=== PATIENT | female | born 1960 | race Caucasian/White ===

== ENCOUNTER → 2016-06-15 | Outpatient (CLI) | payer BC, OTHER ==
--- NOTE | 2016-06-15 11:40 | MR ---
EXAMINATION TYPE: MR shoulder RT wo con DATE OF EXAM: 06/15/2016 10:09 AM COMPARISON: X-ray 05/11/2016, MRI 01/18/2012 HISTORY: contusion rt shoulder TECHNIQUE: Multiplanar, multisequence imaging of the shoulder is performed without contrast. FINDINGS: Rotator Cuff: There is evidence of previous surgery with abnormal marrow changes within the humeral h ead. At the musculotendinous junction of the supraspinatus muscle there is a focal area of increased signa l compatible with tendinopathy and intrasubstance tear. The insertion of the distal margin of the sup raspinatus tendon there also is intrasubstance signal with no retraction compatible with intrasubstan ce tear and tendinopathy. Acromioclavicular Joint: Hypertrophic change and narrowing of the AC joint with no evidence of imping ement. Glenohumeral Joint: Glenohumeral joint is maintained. There is no sizable joint effusion. Labrum: Abnormal signal within the anterior superior labrum is compatible with a labral tear. Biceps Tendon: The long head of biceps is in normal location within bicipital groove. Bone marrow signal: No marrow edema or contusion. Postsurgical and reactive changes involving the hum eral head noted. IMPRESSION: Postoperative changes with findings suggestive of tendinopathy and partial intrasubstance tear of the supraspinatus tendon with no retraction. Anterior superior labral tear
== END | disposition home or self-care (01) ==
LOC: RADMRIMAIN 09:16
PROVIDERS: ATTEND Emergency Medicine
DX: S13.4XXA Sprain of ligaments of cervical spine, initial encounter (principal); S40.011A Contusion of right shoulder, initial encounter; S60.211A Contusion of right wrist, initial encounter; R20.9 Unspecified disturbances of skin sensation

== ENCOUNTER 2016-06-23 09:56 | Emergency (ER) | payer BC, OTHER ==
--- NOTE | 2016-06-23 11:09 | XR ---
EXAMINATION TYPE: XR ankle complete RT DATE OF EXAM: 06/23/2016 11:06 AM CLINICAL HISTORY: pain TECHNIQUE: Frontal, lateral and oblique images of the right foot are obtained. COMPARISON: None. FINDINGS: There is no acute fracture/dislocation evident. The joint spaces appear within normal chatman its. Lateral soft tissue swelling is noted. IMPRESSION: There is no acute fracture or dislocation. ICD 10 NO FRACTURE, INITIAL EVALUATION
--- NOTE | 2016-06-23 11:20 | ED ---
Lower Extremity Injury HPI - General Chief Complaint: Extremity Injury, Lower Stated Complaint: swollen ankle Time Seen by Provider: 06/23/16 10:50 Source: patient, RN notes reviewed Mode of arrival: wheelchair Limitations: no limitations - History of Present Illness Initial Comments: 55-year-old female presents emergency Department with chief complaint of right ankle pain. Patient states that she twisted at work. Patient states is swollen. Patient states it's also bruised. No previous fractures. Patient states he is able to bear minimal weight. Patient offers no other complaints of foot pain no knee pain. - Related Data Home Medications Medication Instructions Recorded Confirmed No Known Home Medications [No 06/23/16 06/23/16 Known Home Medications] Allergies Allergy/AdvReac Type Severity Reaction Status Date / Time hydrocodone bitartrate Allergy Nausea & Verified 06/23/16 10:56 [From Vicodin] Vomiting Review of Systems ROS Statement: Those systems with pertinent positive or pertinent negative responses have been documented in the HPI. ROS Other: All systems not noted in ROS Statement are negative. Past Medical History Past Medical History: Hypertension History of Any Multi-Drug Resistant Organisms: None Reported Past Surgical History: Breast Surgery, Cholecystectomy, Hysterectomy, Orthopedic Surgery Additional Past Surgical History / Comment(s): MATTHEW BREAST BX, RT SHOULDER, RT ELBOW Past Anesthesia/Blood Transfusion Reactions: Postoperative Nausea & Vomiting ( PONV) Past Psychological History: Anxiety Smoking Status: Former smoker Past Alcohol Use History: Occasional Past Drug Use History: None Reported General Exam Limitations: no limitations General appearance: alert, in no apparent distress Head exam: Present: atraumatic, normocephalic, normal inspection Respiratory exam: Present: normal lung sounds bilaterally. Absent: respiratory distress, wheezes, rales, rhonchi, stridor Cardiovascular Exam: Present: regular rate, normal rhythm, normal heart sounds. Absent: systolic murmur, diastolic murmur, rubs, gallop, clicks Extremities exam: Present: other (Right ankle there is moderate ecchymosis, swelling tenderness the lateral malleolus neurovascular intact Refill less than 2 seconds there is no foot tenderness no tenderness proximal to the right ankle) Course Vital Signs 06/23/16 10:06 Temperature 97.5 F L Pulse Rate 98 Respiratory 16 Rate Blood Pressure 127/78 O2 Sat by Pulse 99 Oximetry Medical Decision Making - Medical Decision Making 55-year-old female presented for right ankle pain. Patient x-rays show no acute fracture. Patient has a right ankle sprain placed in a air cast. She is advised to go [id number] acetaminophen and ibuprofen and follow-up with [facility]. Disposition Clinical Impression: Right ankle sprain Disposition: HOME SELF-CARE Condition: Stable Instructions: Ankle Sprain (ED) Additional Instructions: Please return to the Emergency Department if symptoms worsen or any other concerns. Referrals: Iván Stevens MD [Primary Care Provider] - 1-2 days Time of Disposition: 11:19
[2016-06-23] MEDS: IBUPROFEN 600 MG TAB PO STA (11:23)
[2016-06-23 11:27] VITALS: BP 118/70; PULSE 92; RESP 18; TEMP 97.6
== END 2016-06-23 11:42 | disposition home or self-care (01) ==
LOC: EC 09:56
DX: S93.401A Sprain of unspecified ligament of right ankle, initial encounter (principal); Z88.5 Allergy status to narcotic agent; Z87.891 Personal history of nicotine dependence; X50.1XXA Overexertion from prolonged static or awkward postures, initial encounter; Y99.0 Civilian activity done for income or pay
CPT/HCPCS: 99283

== ENCOUNTER → 2016-07-18 | Outpatient (CLI) | payer BC, OTHER ==
[2016-07-18 08:19] LABS: Basophils # (A) 0.2 k/uL (0-0.2); Basophils % (A) 2 %; CH 27.9; CHCM 31.9; Eosinophils # (A) 0.2 k/uL (0-0.7); Eosinophils % (A) 2 %; HCT 42.7 % (34.0-46.0); HDW 2.63; HGB 13.7 gm/dL (11.4-16.0); Luc # (Auto) 0.12; Luc % (Auto) 1; Lymphocytes # (A) 3.2 k/uL (1.0-4.8); Lymphocytes % (A) 37 %; MCH 28.3 pg (25.0-35.0); MCHC 32.1 g/dL (31.0-37.0); Mean Platelet Volume 7.2; Monocytes # (A) 0.4 k/uL (0-1.0); Monocytes % (A) 5 %; Neutrophils # (A) 4.5 k/uL (1.3-7.7); Neutrophils % (A) 53 %; RBC 4.86 m/uL (3.80-5.40); RDW 13.4 % (11.5-15.5); WBC 8.5 k/uL (3.8-10.6)
[2016-07-18 08:35] LABS: Potassium 4.5 mmol/L (3.5-5.1)
== END | disposition home or self-care (01) ==
LOC: LABPAT 07:57
PROVIDERS: ATTEND Orthopaedic Surgery
DX: Z01.812 Encounter for preprocedural laboratory examination (principal); M75.41 Impingement syndrome of right shoulder
CPT/HCPCS: 80051; 85025

== ENCOUNTER 2016-07-27 07:36 | Day surgery (SDC) | payer BC, OTHER ==
[2016-07-21 11:05] VITALS: BMI 33.1
--- NOTE | 2016-07-26 14:09 | HP ---
DATE OF ADMISSION: 07/27/2016 Sakina Coronado is a 56-year-old patient seen with progressive right shoulder pain. After having options regarding treatment discussed with her, she elected to proceed with right shoulder arthroscopy. Consent was obtained. Past medical history is gastroesophageal reflux disease, depression. PAST SURGICAL HISTORY: Hysterectomy, tonsillectomy, cardiac catheterization, right elbow surgery, breast biopsy, right shoulder arthroscopy. DAILY MEDICATIONS: 1. Aspirin. 2. Ibuprofen. ALLERGIES: VICODIN. SOCIAL HISTORY: Patient denies current tobacco use. Physical evaluation of right shoulder: Flexion is 120 degrees, abduction is 90 degrees, external rotation is 50 degrees with some pain and discomfort as well as weakness. Tenderness along the anterolateral acromion rotator cuff insertion site. Impingement positive at 90 degrees, distal neurovascular exam is intact. Radiographs right shoulder revealed no obvious evidence for fracture or osseous abnormality. An MRI of the right shoulder revealed partial rotator cuff tear and superior labral tear. IMPRESSION: Right shoulder impingement with partial rotator cuff tear and labral tear. PLAN: Right shoulder arthroscopy with subacromial decompression, possible arthroscopic rotator cuff repair, possible labral repair versus debridement.
[~2016-07-27 07:36] MED LIST: DEXAMETHASONE SOD PHOSPHATE 10 MG/ML 1 ML VIAL IV ONE; HYDROmorphone 1 MG/ML 1 ML SYRINGE IVP PRN; LACTATED RINGERS 1,000 ML IV SCH; MIDAZOLAM 2 MG/2 ML VIAL IV PRN; ONDANSETRON 4 MG/2 ML VIAL IVP ONE; ceFAZolin 2 GM in SODIUM CHLORIDE 0.9% 100 ML IVPB ONE
[2016-07-27] MEDS ORDERED: LIDOCAINE 1% 20 ML VIAL (10MG/ML) FOR IV START INTRADERMA ONE (08:32)
[2016-07-27] MEDS ORDERED: fentaNYL (PF) 50 MCG/ML 2 ML AMP IV ONE ×2 (08:35→08:40)
[2016-07-27] MEDS ORDERED: MIDAZOLAM 2 MG/2 ML VIAL IVP ONE ×2 (08:35→08:40)
--- NOTE | 2016-07-27 09:09 | P.ONQ ---
Anesthesiology Proc Note - PNB - Peripheral Nerve Block Performed Right Interscalene Single Time Out Performed: Yes Indication: Acute Post-Operative Pain, Analgesia Specifically requested for management of pain by DrMaribel: Loy Miller Sedation Type: Sedate with meaningful contact maintained Preparation: Sterile Prep Position: Supine Catheter: None Needle Types: Other (see comment) (stimuplex) Needle Size: 50mm (2") Needle Gauge: Other (see comment) (22) Technique: Ultrasound Injectate: Other (see comment) (ropivicaine 0.5% 15 cc + Lidocaine 2% 15 cc) Adjunct: Epinephrine (see comment for dilution ratio) (1:200,000) Blood Aspirated: No Pain Paresthesia on Injection Noted: No Resistance on Injection: Normal Events: Uneventful and Well Tolerated
[2016-07-27] MEDS ORDERED: SUCCINYLCHOLINE CHLORIDE 100 MG/5 ML SYR IV ONE (09:26)
[2016-07-27] MEDS ORDERED: ROPIVACAINE 5 MG/ML 30 ML VIAL ONE (09:26)
[2016-07-27] MEDS ORDERED: ePHEDrine 50 MG/ML 1 ML AMP ONE (09:26)
[2016-07-27] MEDS ORDERED: MIDAZOLAM 2 MG/2 ML VIAL ONE (09:26)
[2016-07-27] MEDS ORDERED: fentaNYL (PF) 50 MCG/ML 2 ML AMP ONE (09:26)
[2016-07-27] MEDS ORDERED: PROPOFOL 10 MG/ML 20 ML VIAL IV ONE (09:26)
[2016-07-27] MEDS ORDERED: LIDOCAINE 2%-EPI 1:100,000 20 ML VIAL ONE (09:26)
[2016-07-27] MEDS ORDERED: METOCLOPRAMIDE 5 MG/ML 2 ML VIAL ONE (09:26)
[2016-07-27] MEDS ORDERED: LIDOCAINE 1% INJ 10MG/ML (20 ML MDV) ONE (09:26)
[2016-07-27] MEDS ORDERED: LACTATED RINGERS 1,000 ML IV ONE (10:28)
--- NOTE | 2016-07-27 11:09 | P.OP ---
Date of Procedure: 07/27/16 Preoperative Diagnosis: Right shoulder impingement Postoperative Diagnosis: 1. Right shoulder rotator cuff tear 2. Right shoulder impingement 3. Right shoulder superficial labral tear Procedure(s) Performed: 1. Right shoulder arthroscopic rotator cuff 2. Right shoulder arthroscopic subacromial decompression 3. Right shoulder arthroscopic debridement labral tear Anesthesia: GETA, regional (Right shoulder interscalene block) Surgeon: Loy Miller Stitcher Tape Controlled Machine #1: Asif Aly Estimated Blood Loss (ml): 10 Pathology: none sent Condition: stable Disposition: PACU Indications for Procedure: 56-year-old patient seen with right shoulder pain. After treatment options discussed, she elected to proceed with right shoulder arthroscopy. Operative Findings: See description of procedure Description of Procedure: Patient underwent a shoulder block by department of anesthesia. The patient was then taken to the operative suite. The patient underwent a general anesthetic by the department of anesthesia. The patient was placed into a lateral position and secured. There was appropriate padding of the bony prominence. Right shoulder was then prepped and draped in normal sterile orthopedic fashion. We placed the extremity in 10 pounds of longitudinal traction. A posterior incision was now made for a posterior working portal site. The trocar and cannula were inserted into the glenohumeral joint. Arthroscopy was initiated. Spinal needle was now inserted anteriorly, to ascertain the anterior working portal site. An incision was now made in that area, a trocar was inserted followed by a probe. There was some superficial tearing of the superior labrum. There was evidence for previous biceps tenotomy with absent long head biceps tendon. There were grade 1 chondral malacia changes of the humeral head with no significant osteochondral tears. The remaining labrum was stable. I debrided the superficial labral tear down to stable tissue with a motorized shaver. The residual labrum was probed and found to be stable. Instruments were now removed from glenohumeral joint. Utilizing the posterior working portal site, the trocar and cannula were inserted into the subacromial space. Arthroscopy initiated. I made an incision 2 fingerbreadths lateral to the acromion. I introduced my trocar followed by my ArthroCare ablator. I now began ablating thick subacromial bursal tissue, which exposed the undersurface of the anterior acromion. There was some residual prominence of the very anterior portion of the indurated undersurface of the acromion. I utilized the motorized bur and performed a subacromial decompression. We had good decompression of subacromial space at this point. I turned my attention to the rotator cuff tendon. I noted an area of the posterior distal supraspinatus with was some obvious partial tearing. I utilized the motorized shaver and debrided that down to stable tissue. There was a small perforation noted which was through and through. I debrided the margins down to stable tissue. I now passed 2 sutures for a [id number]-[id number] repair. I tied those 2 sutures approximating the tendon very nicely. The residual suture limbs were clipped. The repair was probed and found to be stable. I injected 1 mL of Allogen intra-articular. Instruments now removed from the portal sites. All portal sites were approximated with nylon suture. Sterile dressings were applied followed by a shoulder immobilizer. Quentin MIRANDA assisted with the procedure. The patient was awakened, transferred to a bed, and taken to recovery in stable condition.
[2016-07-27 11:26] VITALS: RESP 16; TEMP 97.6
[2016-07-27 12:44] VITALS: BP 111/72; PULSE 88
== END 2016-07-27 13:21 | disposition home or self-care (01) ==
LOC: OR 07:36
PROVIDERS: ATTEND Orthopaedic Surgery
DX: M75.101 Unspecified rotator cuff tear or rupture of right shoulder, not specified as traumatic (principal); S43.431A Superior glenoid labrum lesion of right shoulder, initial encounter; J45.909 Unspecified asthma, uncomplicated; I10 Essential (primary) hypertension; Z79.1 Long term (current) use of non-steroidal anti-inflammatories (NSAID); Z88.5 Allergy status to narcotic agent
CPT/HCPCS: 29827; 29826; 64415; C1765; J2250; J1100; J2765; J0690; J2405; J2001; J3010; J2795; J0330; J2704

== ENCOUNTER → 2017-06-08 | Outpatient (CLI) | payer BC ==
--- NOTE | 2017-06-08 11:00 | MR ---
EXAMINATION TYPE: MR shoulder RT wo con DATE OF EXAM: 06/08/2017 COMPARISON: 06/15/2016 HISTORY: 56-year-old female with right shoulder pain TECHNIQUE: Multiplanar, multisequence imaging of the right shoulder is performed without contrast. FINDINGS: Intracapsular portion of the long head biceps tendon remains markedly diminutive. The extracapsular p ortion is situated along the bicipital groove. The subscapularis tendon is intact. There is moderate degenerative joint space narrowing with marginal spurring and capsular hypertrophy at the acromioclavicular joint. Mild capsular and subchondral marrow edema may be slightly progressed from prior. While this abuts the underlying myotendinous junction of the supraspinatus, no significa nt mass effect is seen. Heterogeneity of the supraspinatus tendon status post double row anchor repair. The anterior to mid s upraspinatus tendon is thin but appears intact. Redemonstrated is focal increased signal near the genesis tendinous junction of the mid supraspinatus tendon fibers measuring 3 x 3 mm. This may be a postsurgi harry pinhole defect that appears less pronounced as compared to prior exam. Bursal sided fibers appear to be present. Otherwise, the supraspinatus and infraspinatus tendons remain intact. No atrophy of the rotator cuff musculature. Degenerative blunting of the superior labrum. No paralabral cyst. Physiologic glenohumeral joint effusion. Mild thinning of posterior glenohumeral joint articular cart ilage. There is a trace effusion within the subacromial bursa. No Hill-Sachs deformity or os acromiale patchy red marrow hyperplasia is demonstrated. No suspicious bone marrow replacement. IMPRESSION: 1. Status post supraspinatus tendon repair. No evidence for retracted re-tear. 2. A tiny focal 3 x 3 mm defect involving the mid supraspinatus tendon at the myotendinous junction m ay be on a postsurgical basis. Bursal sided fibers here appear intact. This was present previously bu t appears less pronounced on the current exam. No progression in this tear. No muscle atrophy. 3. Moderate AC joint OA slightly progressed from prior. 4. Very diminutive intracapsular long head biceps tendon suggesting extensive partial tear. The appea vic is not significantly changed from prior.
== END | disposition home or self-care (01) ==
LOC: RADMRIMAIN 06:49
PROVIDERS: ATTEND Orthopaedic Surgery
DX: M19.011 Primary osteoarthritis, right shoulder (principal); R93.7 Abnormal findings on diagnostic imaging of other parts of musculoskeletal system; Z98.890 Other specified postprocedural states

== ENCOUNTER → 2018-07-20 | Outpatient (CLI) | payer BC ==
[2018-07-20 14:00] VITALS: BP 117/80; PULSE 74; RESP 16; TEMP 98; BMI 26.6
--- NOTE | 2018-07-20 15:30 | P.GSHP ---
History of Present Illness H&P Date: 07/20/18 Chief Complaint: Breast screening Sakina is a 58-year-old white female who comes for breast examination. She had a bilateral mammogram performed 07/09/2018. This was felt to be benign and BIRADS 2. The patient states that she lost approximately 58 pounds and since then has noticed some nodularity in both breasts. She complains of right breast periareolar soreness. This is chronic. She does not take hormones. She has no history of trauma or infection in her breast. She drinks coffee intermittently, no tea and no pop. She eats dark chocolate occasionally. She does not smoke and is not exposed to secondhand smoke. Lilian risk shows 5 year risk at 2.6%,her life time risk is 14.2%. (We have discussed counseling with medical oncology for tamoxifen but she does not want to do it at this time) Family history: 1.paternal great aunts/uncles: 4 with lung cancer 2. paternal grandmother: ovaian cancer 3. daughter: ovarian cancer at 34 Menstral History: menarche: 18 : 3, 3 children, first at 20, breast fed: no menopause: hysterectomy at 36, perforated uterus BCP: none hormones: none Past Surgical History: 1. bilateral breast biopsy (5) 2. gallbladder 3. two shoulder surgery (right side) 4. hysterctomy left ovaries, took appendix 5. tubaligation Medical History: none Social history: smoke: none alcohol: occasional drugs: none - Constitutional Constitutional: Reports sweats - EENT Eyes: denies blurred vision, denies pain Ears: deny: decreased hearing, tinnitus Ears, nose, mouth and throat: Reports headache - Breasts Breasts: bilateral: as per HPI - Cardiovascular Cardiovascular: Denies chest pain, Denies shortness of breath - Respiratory Respiratory: Denies cough, Denies 7 - Gastrointestinal Gastrointestinal: Denies abdominal pain, Denies diarrhea, Denies nausea, Denies vomiting - Genitourinary (Female) Genitourinary: Denies dysuria, Denies hematuria - Menstruation Menstruation: Reports post hysterectomy - Musculoskeletal Musculoskeletal: Denies myalgias - Integumentary Integumentary: Denies pruritus, Denies rash - Neurological Neurological: Denies numbness, Denies weakness - Psychiatric Psychiatric: Denies anxiety, Denies depression - Endocrine Endocrine: Reports weight change, Denies fatigue - Hematologic/Lymphatic Comment: none - Allergic/Immunologic Allergic/Immunologic: Reports seasonal allergies Past Medical History Additional Past Medical History / Comment(s): PAST HX OF HTN, NO LONGER ON ANY MEDICATION, STATES SEASONAL ASTHMA, SPRAINED RT ANKLE, CURRENTLY WEARING A BOOT History of Any Multi-Drug Resistant Organisms: None Reported Past Surgical History: Breast Surgery, Cholecystectomy, Hysterectomy, Orthopedic Surgery Additional Past Surgical History / Comment(s): MATTHEW BREAST BX, RT SHOULDER, RT ELBOW Past Anesthesia/Blood Transfusion Reactions: Postoperative Nausea & Vomiting ( PONV) Past Psychological History: Anxiety Smoking Status: Former smoker Past Alcohol Use History: Occasional Additional Past Alcohol Use History / Comment(s): QUIT SMOKING 1986, SMOKED FOR 10 YRS ABOUT 1PPD Past Drug Use History: None Reported - Past Family History Mother Additional Family Medical History / Comment(s): HX OF CLOT IN LIVER, AND SPLEEN Medications and Allergies Home Medications Medication Instructions Recorded Confirmed Type Albuterol Sulfate [Proair Hfa] 2 puff INHALATION DIRECTED PRN 07/21/16 History Ibuprofen Unknown Dose 1 tab PO DIRECTED PRN 07/21/16 07/20/18 History Allergies Allergy/AdvReac Type Severity Reaction Status Date / Time hydrocodone bitartrate AdvReac Nausea & Verified 07/20/18 14:01 [From Vicodin] Vomiting tramadol AdvReac Nausea & Unverified 07/20/18 14:01 Vomiting Surgical - Exam Vital Signs Temp Pulse Resp BP Pulse Ox 98 F 74 16 117/80 97 07/20/18 13:56 07/20/18 13:56 07/20/18 13:56 07/20/18 13:56 07/20/18 13:56 BMI 26.6 - General well developed, well nourished, no distress - Eyes normal ocular movement, no icteric - ENT no hearing loss, no congestion - Neck no masses, trachea midline - Respiratory normal respiratory effort, clear to auscultation - Cardiovascular Rhythm: regular Heart Sounds: normal: S1, S2 - Abdomen Abdomen: soft, non tender, no guarding, no rigid, no rebound - Integumentary normal turgor - Neurologic no disoriented, no combative - Psychiatric oriented to time, oriented to person, oriented to place, speech is normal, memory intact Breast examination: Right breast: Multiple positional exam fibrocystic changes some increased breast tissue in the upper outer quadrant area but no dominant masses or nodules of concern breast is mildly tender consistent with fibrocystic breast disease, well-healed scar from prior breast biopsy Right axilla: No adenopathy of concern Left breast: Well-healed scar from prior breast biopsies multiple positional exam no dominant masses or nodules of concern fibrocystic changes noted Left axilla: No adenopathy of concern Results mammogram results reviewed from July 2018 Assessment and Plan Assessment: Impression: 1. Mastodynia 2. Fibrocystic breast changes 3. Prior bilateral breast biopsies 4. 58 pound weight loss 5. Family history of cancer 6. High risk breast cancer, Lilian risk model five-year risk 2.6% Plan: 1. Close surveillance of breast 2. Repeat bilateral mammogram in 1 year with physician exam at that time 3. Medical management of any medical conditions 4. Yoder oil cc: DR. Darrell Stevens Sebastian
== END ==
LOC: WWCWWP 13:38
PROVIDERS: ATTEND Surgery
DX: Z53.9 Procedure and treatment not carried out, unspecified reason (principal)

== ENCOUNTER → 2018-11-22 | Outpatient (CLI) | payer BC | END | disposition home or self-care (01) | LOC: LABWHC1 14:20 | PROVIDERS: ATTEND Otolaryngology | DX: E03.9 Hypothyroidism, unspecified (principal) | CPT/HCPCS: 36415; 84439; 86376 ==

== ENCOUNTER → 2019-06-26 | Outpatient (CLI) | payer BC ==
--- NOTE | 2019-06-26 07:37 | MR ---
EXAMINATION TYPE: MR shoulder RT wo con DATE OF EXAM: 06/26/2019 COMPARISON: Prior MRI right shoulder June 08, 2017 HISTORY: Right shoulder pain per order. Pain with difficulty raising arm overhead for one year with h istory of prior shoulder surgery 2016 per patient. TECHNIQUE: Multiplanar, multisequence imaging of the right shoulder is performed without contrast. FINDINGS: Rotator Cuff: Subscapularis tendon remains intact on axial image 12. Heterogeneity of distal supraspi natus tendon with some thinning distally most prominent anterior aspect but no new tear. Focal 3 mm t ear sagittal image 19 there are mild tendinous junction remains present without interval progression. Infraspinatus tendon remains intact. Rotator cuff muscle bulk is preserved. Acromioclavicular Joint: Persistent moderate narrowing with mild marginal spurring and mild/moderate capsular hypertrophy. Some subchondral edema redemonstrated. Inferior fat plane is maintained. Distal acromion morphology unremarkable. No significant change from prior. Glenohumeral Joint: Small joint effusion with mild/moderate narrowing redemonstrated. Some thinning o f the articular cartilage again seen. No significant spurring. No significant change from prior. Labrum: Persistent degenerative blunting of the superior labrum without new tear. Biceps Tendon: The long head of biceps is in normal location within bicipital groove. No new suspicio us abnormal signal. Somewhat small caliber tube or capsular portion redemonstrated. Bone marrow signal: Mild subchondral cystic change superolateral humeral head. Other: No additional significant abnormality is appreciated. IMPRESSION: No recurrent retracted tear. Stable [id number] degenerative changes as detailed abo ve and tiny focal tear supraspinatus tendon at myotendinous junction.
== END | disposition home or self-care (01) ==
LOC: RADMRIMAIN 05:45
PROVIDERS: ATTEND Orthopaedic Surgery
DX: M19.011 Primary osteoarthritis, right shoulder (principal); M75.101 Unspecified rotator cuff tear or rupture of right shoulder, not specified as traumatic

== ENCOUNTER → 2020-07-13 | Outpatient (CLI) | payer BC ==
--- NOTE | 2020-07-14 11:14 | MM ---
Reason for exam: screening (asymptomatic). Last mammogram was performed 1 year ago. History: Patient is postmenopausal. Excisional biopsy of both breasts. Took hormonal contraceptives for 6 months. Took progesterone for 2 years. Physical Findings: A clinical breast exam by your physician is recommended on an annual basis and results should be correlated with mammographic findings. MG 3D Screening Mammo W/Cad Bilateral CC and MLO view(s) were taken. Prior study comparison: July 11, 2019, mammogram. July 09, 2018, mammogram. The breast tissue is heterogeneously dense. This may lower the sensitivity of mammography. Finding: Stable architectural distortion in the upper quadrant, anterior position of the right breast consistent with known biopsy change. There is no discrete abnormality. ASSESSMENT: Negative, BI-RAD 1 RECOMMENDATION: Routine screening mammogram of both breasts in 1 year.
== END | disposition home or self-care (01) ==
LOC: RADMAMWWP 06:54
PROVIDERS: ATTEND Surgery
DX: Z12.31 Encounter for screening mammogram for malignant neoplasm of breast (principal)
CPT/HCPCS: 77063; 77067

== ENCOUNTER → 2020-09-18 | Outpatient (CLI) | payer BC ==
[2020-09-18 11:46] VITALS: BP 121/84; PULSE 87; RESP 16; TEMP 98.4
--- NOTE | 2020-09-18 12:13 | P.PN ---
Subjective Progress Note Date: 09/18/20 Principal diagnosis: breast pain/ fibrocystic breast changes fibrocystic breast disease surveillance Sakina is a 60-year-old white female who comes for breast examination. She had a bilateral mammogram performed 07/13/2020. This was felt to be benign and BIRADS 1. She complains of right breast periareolar soreness in the past which has improved. Her hot flashes have also improved. This is chronic. She does not take hormones. She has no history of trauma or infection in her breast. She is not complaining of any lumps masses or nodules of concern in her breast. She is not complaining of any nipple discharge or changes. She drinks coffee intermittently, no tea and no pop. She eats dark chocolate occasionally. The patient does take primrose oil and has had some relief of the discomfort with the primrose oil. She states that she was eating a keto diet her hot flashes resolved. The breast pain also improved. She does not smoke and is not exposed to secondhand smoke. Family history: 1.paternal great aunts/uncles: 4 with lung cancer 2. paternal grandmother: ovarian cancer 3. daughter: ovarian cancer at 34 Menstral History: menarche: 18 : 3, 3 children, first at 20, breast fed: no menopause: hysterectomy at 36, perforated uterus BCP: none hormones: none Past Surgical History: 1. bilateral breast biopsy (5) 2. gallbladder 3. two shoulder surgery (right side) 4. hysterctomy left ovaries, took appendix 5. tubaligation 6. right finger Medical History: none Social history: smoke: none alcohol: occasional drugs: none - Constitutional Constitutional: Reports sweats - EENT Eyes: denies blurred vision, denies pain Ears: deny: decreased hearing, tinnitus Ears, nose, mouth and throat: Reports headache - Breasts Breasts: bilateral: as per HPI - Cardiovascular Cardiovascular: Denies chest pain, Denies shortness of breath - Respiratory Respiratory: Denies cough - Gastrointestinal Gastrointestinal: Denies abdominal pain, Denies diarrhea, Denies nausea, Denies vomiting - Genitourinary (Female) Genitourinary: Denies dysuria, Denies hematuria - Menstruation Menstruation: Reports post hysterectomy - Musculoskeletal Musculoskeletal: Denies myalgias - Integumentary Integumentary: Denies pruritus, Denies rash - Neurological Neurological: Denies numbness, Denies weakness - Psychiatric Psychiatric: Denies anxiety, Denies depression - Endocrine Endocrine: Reports weight change, Denies fatigue - Hematologic/Lymphatic Comment: none - Allergic/Immunologic Allergic/Immunologic: Reports seasonal allergies Past Medical History Additional Past Medical History / Comment(s): PAST HX OF HTN, NO LONGER ON ANY MEDICATION, STATES SEASONAL ASTHMA, History of Any Multi-Drug Resistant Organisms: None Reported Past Surgical History: Breast Surgery, Cholecystectomy, Hysterectomy, Orthopedic Surgery Additional Past Surgical History / Comment(s): MATTHEW BREAST BX, RT SHOULDER, RT ELBOW Past Anesthesia/Blood Transfusion Reactions: Postoperative Nausea & Vomiting (PONV) Past Psychological History: Anxiety Smoking Status: Former smoker Past Alcohol Use History: Occasional Additional Past Alcohol Use History / Comment(s): QUIT SMOKING 1986, SMOKED FOR 10 YRS ABOUT 1PPD Past Drug Use History: None Reported Objective - Vital Signs Vital signs: Vital Signs Temp 98.4 F 09/18/20 11:44 Pulse 87 09/18/20 11:44 Resp 16 09/18/20 11:44 BP 121/84 09/18/20 11:44 Pulse Ox 98 09/18/20 11:44 Intake & Output 09/17/20 09/18/20 09/18/20 18:59 06:59 18:59 Weight 104.326 kg - Exam BMI 35 - Constitutional General appearance: Present: average body habitus - EENT Eyes: Present: EOMI ENT: Present: hearing grossly normal - Neck Neck: Present: normal ROM - Respiratory Respiratory: bilateral: CTA - Cardiovascular Rhythm: regular Heart sounds: normal: S1, S2 - Integumentary Integumentary: Present: normal turgor - Psychiatric Psychiatric: Present: A&O x's 3, appropriate affect, intact judgment & insight - Additional findings Additional findings: Breast Exam: BRA: EXLarge inspection: Well-healed scar left breast from prior biopsy, bilateral ptosis g rade 2/3 Palpation: Right breast: Multiple positional exam fibrocystic breast changes no dominant masses or nodules of concern Right axilla: No adenopathy of concern Left breast: Multiple positional exam fibrocystic changes, no dominant masses or nodules of concern mild tenderness in 12 o'clock position Left axilla: No adenopathy of concern Assessment and Plan Assessment: Impression: 1. Bilateral breast mastodynia improved over last year 2. Right cell modifications help with mastodynia 3. Fibrocystic breast changes 4. Recent bilateral mammogram BIRADS 1 Plan: 1. Continue present by cell modifications 2. Repeat bilateral mammogram in 1 year to call if any questions or concerns Cc: Dr. Stevens
== END ==
LOC: WWCWWP 11:24
PROVIDERS: ATTEND Surgery
DX: N60.11 Diffuse cystic mastopathy of right breast (principal); N60.12 Diffuse cystic mastopathy of left breast; I10 Essential (primary) hypertension; J45.909 Unspecified asthma, uncomplicated; F41.9 Anxiety disorder, unspecified; Z87.891 Personal history of nicotine dependence

== ENCOUNTER → 2021-07-15 | Outpatient (CLI) | payer BC ==
--- NOTE | 2021-07-16 14:31 | MM ---
Reason for exam: screening (asymptomatic). Last mammogram was performed 1 year ago. History: Patient is postmenopausal. Excisional biopsy of both breasts. Took hormonal contraceptives for 6 months. Took progesterone for 2 years. Physical Findings: A clinical breast exam by your physician is recommended on an annual basis and results should be correlated with mammographic findings. MG 3D Screening Mammo W/Cad Bilateral CC and MLO view(s) were taken. Prior study comparison: July 13, 2020, bilateral MG 3d screening mammo w/cad. July 11, 2019, mammogram. The breast tissue is heterogeneously dense. This may lower the sensitivity of mammography. There is no discrete abnormality. No significant changes when compared with prior studies. ASSESSMENT: Negative, BI-RAD 1 RECOMMENDATION: Routine screening mammogram of both breasts in 1 year.
== END | disposition home or self-care (01) ==
LOC: RADMAMWWP 08:45
PROVIDERS: ATTEND Surgery
DX: Z12.31 Encounter for screening mammogram for malignant neoplasm of breast (principal)
CPT/HCPCS: 77063; 77067

== ENCOUNTER → 2021-07-22 | Outpatient (CLI) | payer BC ==
[2021-07-22 10:25] VITALS: BP 128/88; PULSE 80; RESP 18; TEMP 98.3
--- NOTE | 2021-07-22 10:49 | P.PN ---
Subjective Progress Note Date: 07/22/21 Principal diagnosis: Fibrocystic breast changes breast pain/ fibrocystic breast changes fibrocystic breast disease surveillance Sakina is a 61-year-old white female who comes for breast examination. She had a bilateral mammogram performed 07/15/2021. This was felt to be benign and BIRADS 1. She complains of right breast periareolar soreness in the past which has improved. Her hot flashes are now occasional. She does not take hormones. She has no history of trauma or infection in her breast. She is not complaining of any lumps masses or nodules of concern in her breast. She has occasional right nipple discharge, last time 6 months ago. She drinks coffee intermittently, no tea and no pop. She eats dark chocolate occasionally. The patient does take primrose oil and has had some relief of the discomfort with the primrose oil. She states that she was eating a keto diet her hot flashes resolved. The breast pain also improved. She does not smoke and is not exposed to secondhand smoke. Family history: 1.paternal great aunts/uncles: 4 with lung cancer 2. paternal grandmother: ovarian cancer 3. daughter: ovarian cancer at 34 Menstral History: menarche: 18 : 3, 3 children, first at 20, breast fed: no menopause: hysterectomy at 36, perforated uterus BCP: none hormones: none Past Surgical History: 1. bilateral breast biopsy (5) 2. gallbladder 3. two shoulder surgery (right side) 4. hysterctomy left ovaries, took appendix 5. tubaligation 6. right finger Medical History: none Social history: smoke: none alcohol: occasional drugs: none - Constitutional Constitutional: Reports sweats - EENT Eyes: denies blurred vision, denies pain Ears: deny: decreased hearing, tinnitus Ears, nose, mouth and throat: Reports headache - Breasts Breasts: bilateral: as per HPI - Cardiovascular Cardiovascular: Denies chest pain, Denies shortness of breath - Respiratory Respiratory: Denies cough - Gastrointestinal Gastrointestinal: Denies abdominal pain, Denies diarrhea, Denies nausea, Denies vomiting - Genitourinary (Female) Genitourinary: Denies dysuria, Denies hematuria - Menstruation Menstruation: Reports post hysterectomy - Musculoskeletal Musculoskeletal: Denies myalgias - Integumentary Integumentary: Denies pruritus, Denies rash - Neurological Neurological: Denies numbness, Denies weakness - Psychiatric Psychiatric: Denies anxiety, Denies depression - Endocrine Endocrine: Reports weight change, Denies fatigue - Hematologic/Lymphatic Comment: none - Allergic/Immunologic Allergic/Immunologic: Reports seasonal allergies Objective - Vital Signs Vital signs: Vital Signs Temp 98.3 F 07/22/21 10:18 Pulse 80 07/22/21 10:18 Resp 18 07/22/21 10:18 BP 128/88 07/22/21 10:18 Pulse Ox 97 07/22/21 10:18 Intake & Output 07/21/21 07/22/21 07/22/21 18:59 06:59 18:59 Weight 104.326 kg - Exam BMI 35 - Constitutional General appearance: Present: cooperative - EENT Eyes: Present: EOMI ENT: Present: hearing grossly normal - Neck Neck: Present: normal ROM - Respiratory Respiratory: bilateral: CTA - Cardiovascular Rhythm: regular Heart sounds: normal: S1, S2 - Gastrointestinal General gastrointestinal: Present: soft - Integumentary Integumentary: Present: normal turgor - Musculoskeletal Musculoskeletal: Present: gait normal - Psychiatric Psychiatric: Present: A&O x's 3, appropriate affect, intact judgment & insight - Additional findings Additional findings: Breast Exam: BRA: XLarge Inspection: Bilateral grade 2 ptosis, well-healed scar left breast Palpation: Right breast: Multiple positional exam fibrocystic changes no dominant masses or nodules of concern Right axilla: No adenopathy of concern Left breast: Multiple positional exam fibrocystic changes no dominant masses or nodules of concern Left axilla: No adenopathy of concern Assessment and Plan Assessment: Impression: Fibrocystic breast changes bilaterally Recent bilateral mammogram BIRADS 1 Plan: Continue [place] oil Follow-up 1 year with bilateral mammogram Follow-up sooner to questions or concerns CC: /Dr. Agarwal
== END | disposition home or self-care (01) ==
LOC: WWCWWP 09:37
PROVIDERS: ATTEND Surgery
DX: Z53.9 Procedure and treatment not carried out, unspecified reason (principal)

== ENCOUNTER → 2022-09-01 | Outpatient (CLI) | payer BC | LOC: WWCWWP 09:38 | PROVIDERS: ATTEND Surgery | DX: Z53.9 Procedure and treatment not carried out, unspecified reason (principal) ==

== ENCOUNTER → 2023-07-20 | Outpatient (CLI) | payer BC ==
--- NOTE | 2023-07-20 22:21 | MM ---
Reason for Exam: Screening (asymptomatic). Last screening mammogram was performed 12 month(s) ago. Patient History: Menarche at age 18. First Full-Term at age 20. Right ovary removed at age 35. Hysterectomy at age 34. Postmenopausal. Patient used Progesterone for 2 years. Hormonal Contraceptives for 6 months. Bilateral Excisional Biopsy. Paternal grandmother had ovarian cancer. Daughter had ovarian cancer, age 34. Risk Values: Lilian 5 year model risk: 1.2%. NCI Lifetime model risk: 5.4%. Prior Study Comparison: 07/13/2020 Bilateral Screening Mammogram, [facility]. 07/15/2021 Bilateral Screening Mammogram, [facility]. 07/18/2022 Bilateral MG 3D screening mammo w/cad, [facility]. Tissue Density: The breast tissue is heterogeneously dense. This may lower the sensitivity of mammography. Findings: Analyzed By CAD. There is no suspicious group of microcalcifications or new suspicious mass in either breast. Overall Assessment: Negative, BI-RAD 1 Management: Screening Mammogram of both breasts in 1 year. . Patient should continue monthly self-breast exams. A clinical breast exam by your physician is recommended on an annual basis. This exam should not preclude additional follow-up of suspicious palpable abnormalities. Note on Lilian scores and lifetime risk: 1. A Lilian score greater than 3% is considered moderate risk. If this is the case, consider specialist referral to assess eligibility for a risk reducing agent. 2. If overall lifetime risk for the development of breast cancer is 20% or higher, the patient may qualify for future screening with alternating mammogram and breast MRI. Electronically signed and approved by: Dimas Farrell M.D. Radiologist
== END | disposition home or self-care (01) ==
LOC: RADMAMWWP 07:42
PROVIDERS: ATTEND Surgery
DX: Z12.31 Encounter for screening mammogram for malignant neoplasm of breast (principal); Z78.0 Asymptomatic menopausal state
CPT/HCPCS: 77063; 77067

== ENCOUNTER → 2023-07-27 | Outpatient (CLI) | payer BC ==
--- NOTE | 2023-07-27 09:38 | P.PN ---
Subjective Progress Note Date: 07/27/23 Principal diagnosis: fibrocystic breast changes Fibrocystic breast changes fibrocystic breast disease surveillance Sakina is a 63-year-old white female who comes for breast examination. She had a bilateral mammogram performed 07/10/23. This was felt to be benign and BIRADS 1. She complains of right breast periareolar soreness in the past which has improved. Her hot flashes are now gone. She does not take hormones. She has no history of trauma or infection in her breast. She is not complaining of any lumps masses or nodules of concern in her breast. She has no further nipple discharge on either side. She drinks coffee intermittently, no tea and no pop. She eats dark chocolate occasionally. The patient did take Premarin nasal oil in the past but has stopped. She states that she was eating a keto diet her hot flashes resolved. The breast pain also improved. She does not smoke and is not exposed to secondhand smoke. Family history: 1.paternal great aunts/uncles: 4 with lung cancer 2. paternal grandmother: ovarian cancer 3. daughter: ovarian cancer at 34 Menstral History: menarche: 18 : 3, 3 children, first at 20, breast fed: no menopause: hysterectomy at 36, perforated uterus BCP: none hormones: none Past Surgical History: 1. bilateral breast biopsy (5) 2. gallbladder 3. two shoulder surgery (right side) 4. hysterctomy left ovaries, took appendix 5. tubaligation 6. right finger Medical History: none Social history: smoke: none alcohol: occasional drugs: none - Constitutional Constitutional: Reports sweats - EENT Eyes: denies blurred vision, denies pain Ears: deny: decreased hearing, tinnitus Ears, nose, mouth and throat: Reports headache - Breasts Breasts: bilateral: as per HPI - Cardiovascular Cardiovascular: Denies chest pain, Denies shortness of breath - Respiratory Respiratory: Denies cough - Gastrointestinal Gastrointestinal: Denies abdominal pain, Denies diarrhea, Denies nausea, Denies vomiting - Genitourinary (Female) Genitourinary: Denies dysuria, Denies hematuria - Menstruation Menstruation: Reports post hysterectomy - Musculoskeletal Musculoskeletal: Denies myalgias - Integumentary Integumentary: Denies pruritus, Denies rash - Neurological Neurological: Denies numbness, Denies weakness - Psychiatric Psychiatric: Denies anxiety, Denies depression - Endocrine Endocrine: Reports weight change, Denies fatigue - Hematologic/Lymphatic Comment: none - Allergic/Immunologic Allergic/Immunologic: Reports seasonal allergies Objective - Constitutional General appearance: Present: cooperative - EENT Eyes: Present: EOMI ENT: Present: hearing grossly normal - Neck Neck: Present: normal ROM - Respiratory Respiratory: bilateral: CTA - Cardiovascular Heart sounds: normal: S1, S2 - Integumentary Integumentary: Present: normal turgor - Musculoskeletal Musculoskeletal: Present: gait normal - Psychiatric Psychiatric: Present: A&O x's 3, appropriate affect, intact judgment & insight - Additional findings Additional findings: Breast Exam: BRA: XLarge Inspection: Bilateral grade 2 ptosis, well-healed scar left breast Palpation: Right breast: Multiple positional exam fibrocystic changes no dominant masses or nodules of concern Right axilla: No adenopathy of concern Left breast: Multiple positional exam fibrocystic changes no dominant masses or nodules of concern Left axilla: No adenopathy of concern Assessment and Plan Assessment: Impression: Fibrocystic breast changes bilaterally Recent bilateral mammogram BIRADS 1; 2-15-24 Plan: Follow-up 1 year with bilateral mammogram Follow-up sooner to questions or concerns CC: /Dr. Agarwal
[2023-07-27 10:35] VITALS: BP 118/78; PULSE 80; RESP 15; TEMP 98.2
== END ==
LOC: WWCWWP 09:19
PROVIDERS: ATTEND Surgery
DX: N60.11 Diffuse cystic mastopathy of right breast (principal); N60.12 Diffuse cystic mastopathy of left breast; N64.4 Mastodynia; Z88.5 Allergy status to narcotic agent; Z87.891 Personal history of nicotine dependence

== ENCOUNTER → 2024-08-16 | Outpatient (CLI) | payer BC ==
[2024-08-16 12:49] VITALS: BP 134/84; PULSE 100; RESP 17; TEMP 97.9
--- NOTE | 2024-08-16 13:05 | P.PN ---
Subjective Progress Note Date: 08/16/24 08-16-24 Principal diagnosis: fibrocystic breast changes/ ovarian cancer fibrocystic breast disease surveillance Sakina is a 64-year-old white female who comes for breast examination. She had a bilateral mammogram performed 07-22-24. This was felt to be benign and BIRADS 2. She complains of right breast periareolar soreness in the past which has improved. Her hot flashes are now gone. She does not take hormones. She has no history of trauma or infection in her breast. She is not complaining of any lumps masses or nodules of concern in her breast. Some slight increased tenderness in the left breast at the 12 o'clock position with some slight fullness at that site. She has no further nipple discharge on either side. Jun pathology from [facility], adenocarcinoma left ovary genetic testing 08-04-24 negative She is now receiving chemotherapy for ovarian cancer, about 40 pounds of fluid removed from stomach, the tumor was 8 x 6 x 4 cm it is a FIGO stage IIb regional lymph nodes state no nodes submitted; sigmoid tumor deposit is 4 x 3 x 1.3 cm She drinks coffee intermittently, no tea and no pop. She eats dark chocolate occasionally. The patient did take Premarin nasal oil in the past but has stopped. She states that she was eating a keto diet her hot flashes resolved. The breast pain also improved. She does not smoke and is not exposed to secondhand smoke. Family history: 1.paternal great aunts/uncles: 4 with lung cancer 2. paternal grandmother: ovarian cancer 3. daughter: ovarian cancer at 34 4. paternal aunt pancreatic cancer Menstral History: menarche: 18 : 3, 3 children, first at 20, breast fed: no menopause: hysterectomy at 36, perforated uterus BCP: none hormones: none Past Surgical History: 1. bilateral breast biopsy (5) 2. gallbladder 3. two shoulder surgery (right side) 4. hysterctomy left ovaries, took appendix 5. tubaligation 6. right finger 7. surgery for ovarian cancer Jun 2024 Medical History: ovarian cancer Social history: smoke: none alcohol: occasional drugs: none - Constitutional Constitutional: Reports sweats - EENT Eyes: denies blurred vision, denies pain Ears: deny: decreased hearing, tinnitus Ears, nose, mouth and throat: Reports headache - Breasts Breasts: bilateral: as per HPI - Cardiovascular Cardiovascular: Denies chest pain, Denies shortness of breath - Respiratory Respiratory: Denies cough - Gastrointestinal Gastrointestinal: Denies abdominal pain, Denies diarrhea, Denies nausea, Denies vomiting - Genitourinary (Female) Genitourinary: Denies dysuria, Denies hematuria - Menstruation Menstruation: Reports post hysterectomy - Musculoskeletal Musculoskeletal: Denies myalgias - Integumentary Integumentary: Denies pruritus, Denies rash - Neurological Neurological: Denies numbness, Denies weakness - Psychiatric Psychiatric: Denies anxiety, Denies depression - Endocrine Endocrine: Reports weight change, Denies fatigue - Hematologic/Lymphatic Comment: none - Allergic/Immunologic Allergic/Immunologic: Reports seasonal allergies Objective - Vital Signs Vital signs: Intake & Output 08/15/24 08/16/24 08/16/24 18:59 06:59 18:59 Weight 96.162 kg - Constitutional General appearance: Present: cooperative - EENT Eyes: Present: EOMI ENT: Present: hearing grossly normal - Neck Neck: Present: normal ROM - Respiratory Respiratory: bilateral: CTA - Cardiovascular Rhythm: regular Heart sounds: normal: S1, S2 - Integumentary Integumentary: Present: normal turgor - Musculoskeletal Musculoskeletal: Present: gait normal - Psychiatric Psychiatric: Present: A&O x's 3, appropriate affect, intact judgment & insight - Additional findings Additional findings: BRA: XLarge Inspection: Bilateral grade 2 ptosis, well-healed scar left breast Palpation: Right breast: Multiple positional exam fibrocystic changes no dominant masses or nodules of concern Right axilla: No adenopathy of concern Left breast: Multiple positional exam fibrocystic changes increase nodularity at 12:00 Left axilla: No adenopathy of concern Assessment and Plan Assessment: Impression: Fibrocystic breast changes bilaterally Recent bilateral mammogram BIRADS 1; 2-15-24 increased nodularity at 12:00 left breast recent diagnosis of ovarian cancer treated at [facility] Dr. Arshad Plan: Follow-up 1 year with bilateral mammogram ultrasound left breast 12:00 with appointment after this is done CC: /Dr. Mckinney
== END ==
LOC: WWCWWP 11:41
PROVIDERS: ATTEND Surgery
DX: Z12.31 Encounter for screening mammogram for malignant neoplasm of breast (principal); C56.2 Malignant neoplasm of left ovary; N60.11 Diffuse cystic mastopathy of right breast; N60.12 Diffuse cystic mastopathy of left breast; Z88.5 Allergy status to narcotic agent; Z87.891 Personal history of nicotine dependence

== ENCOUNTER → 2024-09-16 | Outpatient (CLI) | payer BC ==
--- NOTE | 2024-09-16 10:24 | USB ---
Patient History: Menarche at age 18. First Full-Term at age 20. Left ovary removed at age 63. Right ovary removed at age 35. Hysterectomy at age 34. Postmenopausal. Ovarian cancer, age 63. Patient used Progesterone for 2 years. Hormonal Contraceptives for 6 months. Bilateral Excisional Biopsy. Paternal grandmother had ovarian cancer. Daughter had ovarian cancer, age 34. Risk Values: Lilian 5 year model risk: 1.2%. NCI Lifetime model risk: 5.2%. Technique: Method: Targeted. Doppler: Color. Patient Position: Supine. Prior Study Comparison: 07/18/2022 Bilateral MG 3D screening mammo w/cad, [facility]. 07/20/2023 Bilateral MG 3D screening mammo w/cad, [facility]. 07/22/2024 Bilateral MG 3D screening mammo w/cad, [facility]. Findings: The area of palpable concern of the left breast, the axilla of the left breast and the retroareolar of the left breast were scanned. Targeted ultrasound is performed. There is a avascular 9 x 7 x 4 mm cystic area with increased through transmission possibly having avascular septa at area of concern 1:00 position 4 cm distance from nipple. No additional concerning solid or cystic mass. A prominent benign-appearing left axillary lymph node is also marked by the technologist. Overall Assessment: Probably benign, BI-RAD 3 Management: Diagnostic Breast Ultrasound of the left breast in 6 months. A clinical breast exam by your physician is recommended on an annual basis and results should be correlated with mammographic findings. This exam should not preclude additional follow-up of suspicious palpable abnormalities. Results were given to the patient verbally at the time of exam. [facility], , 09/16/2024 10:21 AM. Electronically signed and approved by: Bronson Stuart M.D.
== END | disposition home or self-care (01) ==
LOC: RADUSWWP 09:57
PROVIDERS: ATTEND Surgery
DX: N63.0 Unspecified lump in unspecified breast (principal); Z78.0 Asymptomatic menopausal state; Z80.41 Family history of malignant neoplasm of ovary; Z92.0 Personal history of contraception

== ENCOUNTER → 2024-10-18 | Outpatient (CLI) | payer BC ==
[2024-10-18 11:14] VITALS: BP 109/74; PULSE 98; RESP 17; TEMP 97.9
--- NOTE | 2024-10-18 11:24 | P.PN ---
Subjective Progress Note Date: 10/18/24 08/16/24 08-16-24 Principal diagnosis: fibrocystic breast changes/ ovarian cancer fibrocystic breast disease surveillance Sakina is a 64-year-old white female who comes for breast examination. She had a bilateral mammogram performed 07-22-24. This was felt to be benign and BIRADS 2. She complains of right breast periareolar soreness in the past which has improved. Her hot flashes are now gone. She does not take hormones. She has no history of trauma or infection in her breast. She is not complaining of any lumps masses or nodules of concern in her breast. Some slight increased tenderness in the left breast at the 12 o'clock position with some slight fullness at that site. She has no further nipple discharge on either side. Jun pathology from [facility], adenocarcinoma left ovary genetic testing 08-04-24 negative She is now receiving chemotherapy for ovarian cancer, about 40 pounds of fluid removed from stomach, the tumor was 8 x 6 x 4 cm it is a FIGO stage IIb regional lymph nodes state no nodes submitted; sigmoid tumor deposit is 4 x 3 x 1.3 cm She drinks coffee intermittently, no tea and no pop. She eats dark chocolate occasionally. The patient did take Premarin nasal oil in the past but has stopped. She states that she was eating a keto diet her hot flashes resolved. The breast pain also improved. She does not smoke and is not exposed to second hand smoke. 10-18-24 ultrasound of the left breast at 12:00 avascular 9 by 7 by 4 mm cystic area BIRAD 3 repeat ultrasound in 6 months examination of the breast on 08-16-24 revealed some nodularity at 12:00 left breast She has two treatments of chemotherapy November 29, for ovarian cancer there is no recommendation for radiation therapy The patient is not complaining of any nodularity in her breast at this time Family history: 1.paternal great aunts/uncles: 4 with lung cancer 2. paternal grandmother: ovarian cancer 3. daughter: ovarian cancer at 34 4. paternal aunt pancreatic cancer Menstral History: menarche: 18 : 3, 3 children, first at 20, breast fed: no menopause: hysterectomy at 36, perforated uterus BCP: none hormones: none Past Surgical History: 1. bilateral breast biopsy (5) 2. gallbladder 3. two shoulder surgery (right side) 4. hysterctomy left ovaries, took appendix 5. tubaligation 6. right finger 7. surgery for ovarian cancer Jun 2024 Medical History: ovarian cancer Social history: smoke: none alcohol: occasional drugs: none - Constitutional Constitutional: Reports sweats - EENT Eyes: denies blurred vision, denies pain Ears: deny: decreased hearing, tinnitus Ears, nose, mouth and throat: Reports headache - Breasts Breasts: bilateral: as per HPI - Cardiovascular Cardiovascular: Denies chest pain, Denies shortness of breath - Respiratory Respiratory: Denies cough - Gastrointestinal Gastrointestinal: Denies abdominal pain, Denies diarrhea, Denies nausea, Denies vomiting - Genitourinary (Female) Genitourinary: Denies dysuria, Denies hematuria - Menstruation Menstruation: Reports post hysterectomy - Musculoskeletal Musculoskeletal: Denies myalgias - Integumentary Integumentary: Denies pruritus, Denies rash - Neurological Neurological: Denies numbness, Denies weakness - Psychiatric Psychiatric: Denies anxiety, Denies depression - Endocrine Endocrine: Reports weight change, Denies fatigue - Hematologic/Lymphatic Comment: none - Allergic/Immunologic Allergic/Immunologic: Reports seasonal allergies Objective - Vital Signs Vital signs: Intake & Output 10/17/24 10/18/24 10/18/24 18:59 06:59 18:59 Weight 101.605 kg - Constitutional General appearance: Present: cooperative - EENT Eyes: Present: EOMI ENT: Present: hearing grossly normal - Neck Neck: Present: normal ROM - Respiratory Respiratory: bilateral: CTA - Cardiovascular Rhythm: regular Heart sounds: normal: S1, S2 - Integumentary Integumentary: Present: normal turgor - Musculoskeletal Musculoskeletal: Present: gait normal - Psychiatric Psychiatric: Present: A&O x's 3, appropriate affect, intact judgment & insight - Additional findings Additional findings: BRA: XLarge Inspection: Bilateral grade 2 ptosis, well-healed scar left breast Palpation: Right breast: Multiple positional exam fibrocystic changes no dominant masses or nodules of concern Right axilla: No adenopathy of concern Left breast: Multiple positional exam fibrocystic changes, nodularity at 12:00 which was felt on her last exam seems to have resolved Left axilla: No adenopathy of concern Assessment and Plan Assessment: Impression: Fibrocystic breast changes bilaterally increased nodularity at 12:00 left breast resolved recent diagnosis of ovarian cancer treated at [facility] Dr. Arshad bilateral mammogram 07-22-24 BIRAD 2 Plan: 6-month left breast ultrasound with appointment Bilateral mammogram July 2025 with appointment Patient to follow-up sooner any questions or concerns Complete chemotherapy for ovarian cancer/will be done November 29, 2024 CC: /Dr. Mckinney
== END ==
LOC: WWCWWP 09:33
PROVIDERS: ATTEND Surgery
DX: Z12.31 Encounter for screening mammogram for malignant neoplasm of breast (principal); N60.11 Diffuse cystic mastopathy of right breast; N60.12 Diffuse cystic mastopathy of left breast; C56.2 Malignant neoplasm of left ovary; Z87.891 Personal history of nicotine dependence; Z88.5 Allergy status to narcotic agent

== ENCOUNTER → 2024-12-31 | Outpatient (CLI) | payer BC ==
[2024-12-31 11:49] LABS: African American GFR (CKD) >90 (>60 ml/min/1.73 sqM); Blood Urea Nitrogen 12 mg/dL (7-17); Non-African American GFR(CKD) 82 (>60 ml/min/1.73 sqM)
--- NOTE | 2024-12-31 14:05 | CT ---
EXAMINATION TYPE: CT ChestAbdPelvis w con DATE OF EXAM: 12/31/2024 COMPARISON: None CLINICAL INDICATION: Female, 64 years old with history of C56.2 MALIGNANT NEOPLASM OF LEFT OVARY JASIEL GNANT NEOPLASM OF CT DLP: 1099 mGycm Automated exposure control for dose reduction was used. CONTRAST: CT scan of the chest, abdomen and pelvis is performed with Oral Contrast and with IV Contrast, patien t injected with 100ml mL of Isovue 300. FINDINGS: CT chest: There is no suspicious lung mass or nodule. There are a few scattered micronodules. There is no abnormal airspace/consolidative density or abnormal interstitial density. There is no pleural effusion, pleural thickening or pneumothorax. The great vessels and chest are normal there is no mediastinal, hilar or axillary adenopathy. No focal osseous lesions are seen. CT abdomen and pelvis: There is a moderate hiatal hernia. There is surgical absence of the gallbladder. There is no biliary ductal dilatation. There is no focal mass or organomegaly involving the liver, pancreas, spleen or adrenal glands.. There is no solid renal mass or hydronephrosis. There is no retroperitoneal adenopathy or hemorrhage in the caliber of the abdominal aorta is normal. The bowel loops are normal in caliber and there is no dilatation or obstruction. No inflammatory courtney ges identified in the bowel wall and mesentery. There is no free intracranial air or fluid. There is no pelvic mass or adenopathy. There is no free fluid within the pelvis. There is surgical ab sence of the uterus. No focal osseous lesions are seen. Soft tissue the abdomen and pelvis are normal. IMPRESSION: No evidence of metastatic disease. Moderate hiatal hernia. [facility], , 12/31/2024 2:02 PM
== END | disposition home or self-care (01) ==
LOC: RADCTMAIN 10:58
PROVIDERS: ATTEND Obstetrics & Gynecology
DX: C56.2 Malignant neoplasm of left ovary (principal); K44.9 Diaphragmatic hernia without obstruction or gangrene
CPT/HCPCS: 82565; 84520; 71260; 74177; 36415; Q9967